=== PATIENT | female | born 1935 | race Caucasian/White ===

== ENCOUNTER 2018-03-30 12:12 | Outpatient (CLI) | payer MEDICARE | END 2018-03-30 12:13 | disposition home or self-care (01) | LOC: BICMRI 12:12 | PROVIDERS: ATTEND Orthopaedic Surgery | DX: M47.896 Other spondylosis, lumbar region (principal); M54.32 Sciatica, left side | CPT/HCPCS: 72148 ==

== ENCOUNTER 2018-07-25 09:18 | Outpatient (CLI) | payer MEDICARE | END 2018-07-25 09:19 | disposition home or self-care (01) | LOC: BICMAMMO 09:18 | PROVIDERS: ATTEND Obstetrics & Gynecology | DX: Z12.31 Encounter for screening mammogram for malignant neoplasm of breast (principal); M85.852 Other specified disorders of bone density and structure, left thigh | CPT/HCPCS: 77063; 77067; 77080 ==

== ENCOUNTER 2019-01-13 11:34 | Inpatient (IN) | payer MEDICARE ==
[2019-01-13 16:16] VITALS: BMI 25.1
[2019-01-13] MEDS ORDERED: Acetaminophen 325 MG TAB PO PRN (16:44)
[2019-01-13] MEDS ORDERED: Acetaminophen 650 MG Suppository PR PRN (16:44)
[2019-01-13] MEDS ORDERED: Bisacodyl 5 MG TAB PO PRN (16:44)
[2019-01-13] MEDS: Sodium Chloride 0.9% 1,000 ML IV SCH (17:29)
--- NOTE | 2019-01-13 17:54 | HP ---
PRIMARY CARE PROVIDER: Mitch Gu DO CHIEF COMPLAINT: Flank pain. HISTORY OF PRESENT ILLNESS: Ms. De La O is a pleasant 84-year-old lady, who was seen at [facility] on January 13, 2019, following transfer from [facility] [place]. She was admitted there on January 10, 2019, after she presented to the emergency room with acute onset of left flank pain. The patient reports that she continues to have on and off left flank pain, dull, 10/10 at its worst, improving with pain medications. She denies any dysuria. She denies any chest pain or shortness of breath. At [place], she was found to have urinary tract infection and bacteremia with pansensitive Escherichia coli. She underwent imaging in the form of CT scan of abdomen and pelvis, which showed 6 to 7 mm distal left ureteral calculus near the UVJ causing moderate hydronephrosis and hydroureter. She also had worsening renal function. She has been transferred to this facility for ongoing treatment as well as Urology consult. REVIEW OF SYSTEMS: All other systems reviewed and found to be negative. PAST MEDICAL HISTORY: Congestive heart failure, dyslipidemia, coronary artery disease. PAST SURGICAL HISTORY: Appendectomy, coronary artery bypass graft surgery, and bilateral tubal ligation. SOCIAL HISTORY: The patient drinks one beer a day. She denies any tobacco use or recreational drug use. FAMILY HISTORY: Coronary artery disease in both her parents. ALLERGIES: LATEX AND NATURAL RUBBER. HOME MEDICATIONS: In addition to antibiotics started at [facility], which need to be clarified, her home medications include: 1. Spironolactone 25 mg daily. 2. Simvastatin 40 mg at bedtime. 3. Metoprolol 25 mg daily. 4. Lasix 20 mg daily. 5. Aspirin 81 mg daily. PHYSICAL EXAMINATION: GENERAL: Ms. De La O is awake and alert, not in acute distress. VITAL SIGNS: Blood pressure is 126/72, pulse 69, respiratory rate 18, and oxygen saturation 97% on room air. She is afebrile. EYES: No scleral icterus. No conjunctival pallor. ENT: Moist mucosal membranes. No oropharyngeal erythema or exudates. NECK: Supple, nontender, trachea is midline. RESPIRATORY: Accessory muscles of breathing are not active. Chest wall movements are symmetric bilaterally. Lungs are clear to auscultation without wheeze, rhonchi, or crepitations. CARDIOVASCULAR: S1 and S2 are heard, regular. Peripheral pulses palpable. No carotid bruit. No pericardial rub. ABDOMEN: Soft, nontender. Bowel sounds heard. No hepatomegaly. No splenomegaly. NEUROLOGIC: Cranial nerves 2 through 12 intact. Deep tendon reflexes 2+. MUSCULOSKELETAL: Power is 5/5 in all four extremities. SKIN: No rashes or subcutaneous nodules. LYMPHATIC: No cervical lymphadenopathy. PSYCHIATRIC: Normal mood. Normal affect. The patient is oriented to person, place, and time. LABORATORY DATA: Ms. De La O's labs and investigations were reviewed. She had CT scan of the abdomen and pelvis at [facility], with results as described above. She also had abdominal x-ray today, where stone was not definitively seen due to overlying gas and fecal material. She also has mild constipation. Today, she has white count 9100, of which 76% are neutrophils, normocytic anemia with hemoglobin 11.9, thrombocytopenia with platelet count of 129,000, platelet count was 119,000 on January 12 and 168,000 on January 11. She has normal potassium, normal sodium, decreased carbon dioxide of 21, normal anion gap, elevated blood urea nitrogen of 27, elevated creatinine of 1.81, last creatinine was 1.78 on January 12, 2019, creatinine was 1.09 on June 26, 2018, creatinine has slowly increased from 1.11 on January 10 to 1.81 today. Urine cultures and blood cultures have grown pansensitive Escherichia coli. ASSESSMENT AND PLAN: Ms. De La O is a pleasant 84-year-old lady, who was seen at [facility] on January 13, 2019, following transfer from [place]. Her problem list includes: 1. Bacteremia: She is presenting with bacteremia secondary to pansensitive Escherichia coli urinary tract infection. She will be admitted to the hospital for further management including intravenous antibiotics in the form of ceftriaxone. 2. Urinary tract infection: She has urinary tract infection with pansensitive Escherichia coli. We will continue ceftriaxone. 3. Ureterolithiasis: Urology Service will be consulted for opinion and help with management of ureterolithiasis. 4. Coronary artery disease: Appears to be stable. 5. Acute kidney injury: Most likely secondary to ureterolithiasis. However, component of dehydration cannot be ruled out. We will provide gentle hydration and recheck creatinine. Many thanks for allowing me to participate in your patient's care. Please feel free to contact me with any questions or concerns. LEVEL OF RISK: Moderate. LEVEL OF COMPLEXITY: Moderate. Job ID: [id number]
[2019-01-13] MEDS: Simvastatin 40 MG TAB PO SCH (20:45)
[2019-01-13] MEDS: Heparin 5,000 UNITS/ML VIAL SC SCH (20:47)
[2019-01-13] MEDS ORDERED: HYDROcodone/Acetaminophen 5/325 mg Tablet PO PRN (23:39)
[2019-01-14] MEDS ORDERED: HYDROcodone/Acetaminophen 5/325 mg Tablet PO SCH (03:00)
[2019-01-14] MEDS ORDERED: Fentanyl 100 MCG/2 ML VIAL ONE (07:04)
[2019-01-14] MEDS ORDERED: Famotidine/PF 20 mg/2ml Vial ONE (07:04)
[2019-01-14 07:59] LABS: #Eosinphils 0.3 thou/uL (0.0-0.7); #Lymphocytes 1.2 thou/uL (1.20-3.40); #Monocytes 0.7 thou/uL (0.11-0.59); #Neutrophils 5.2 thou/uL (1.40-6.50); %Basophils 0.6 % (0.0-1.0); %Eosinophils 3.9 % (0.0-10.0); %Lymphocytes 16.2 % (21.0-51.0); %Monocytes 9.9 % (0.0-10.0); %Neutrophils 69.5 % (42.0-75.0); Hemoglobin 12.9 g/dL (12.0-16.0); Mean Corpuscular HGB CONC 33.4 g/dL (32.0-36.0); Mean Corpuscular Volume 98.6 fL (78.0-98.0); Mean Platelet Volume 8.2 fL (7.4-10.4); Platelet Count 178 thou/uL (130-400); RBC Distribution Width 11.2 % (11.5-14.5); Red Blood Cell (RBC) Count 3.91 mill/uL (4.20-5.40); White Blood Cell (WBC) Count 7.5 thou/uL (4.8-10.8)
[2019-01-14] MEDS ORDERED: Iothalamate Meglumine 60% 50 ML VIAL FS ONE (08:10)
--- NOTE | 2019-01-14 08:18 | CON ---
DATE OF CONSULTATION: 01/14/2019 REQUESTING PHYSICIAN: Leonard Salazar MD REASON FOR CONSULTATION: Left ureteral stone and sepsis secondary to urinary tract infection. PRIMARY CARE PHYSICIAN: Dr. Mitch Gu, in [place], [place]. HISTORY OF PRESENT ILLNESS: Ms. De La O is an 84-year-old female who presented as a transfer from [facility] in [place] yesterday. The patient was admitted there on January 10, 2019. She presented with acute onset of left-sided flank pain. The patient was found to have significant urinary tract infection. She was also hypotensive. She was started on fluids and broad-spectrum antibiotics. Urine culture and blood culture demonstrated pansensitive E coli in both. On January 12, 2019, she underwent a CT of the abdomen and pelvis, which demonstrated a 6- to 7-mm distal left ureteral calculus causing moderate hydroureteronephrosis. The patient also had worsening renal function. She clinically improved and was kept there overnight, and yesterday afternoon, a KUB was performed which demonstrated the stone at approximately the same location. At this point, she was transferred here to [facility] in [place] for a higher level of care for urologic services. Currently, the patient is doing well. She is no longer hypotensive. She has no flank pain at this time. She has not had a fever. No recurrent UTIs in the past. She has no history of prior stones. No other complaints. REVIEW OF SYSTEMS: Full 12-point review of systems was performed and is negative other than mentioned in the HPI. PAST MEDICAL HISTORY: Congestive heart failure, coronary artery disease status post CABG in 2005, dyslipidemia. PAST SURGICAL HISTORY: Appendectomy, CABG in 2006, bilateral tubal ligation. SOCIAL HISTORY: She drinks one beer per day. No tobacco. She lives at home. FAMILY HISTORY: Noncontributory. ALLERGIES: LATEX AND NATURAL RUBBER. HOME MEDICATIONS: Spironolactone, simvastatin, metoprolol, Lasix, and aspirin 81 mg. PHYSICAL EXAMINATION: VITAL SIGNS: Temperature 98.3, pulse 91, respirations 16, oxygen saturation 100% on room air, and blood pressure 140/84. GENERAL: She is alert and oriented x3, in no apparent distress. HEENT: Normocephalic, atraumatic. NECK: Supple. No masses or lymphadenopathy. CARDIOVASCULAR: Regular rate and rhythm. PULMONARY: Breathing unlabored. No wheezing. ABDOMEN: Soft, nontender/nondistended. No masses or organomegaly. No suprapubic tenderness to palpation. No CVA tenderness. EXTREMITIES: Warm and well perfused. No edema. NEUROLOGIC: No focal deficits. LABORATORY DATA: Urine culture and blood culture from January 10, 2019 demonstrate pansensitive E coli. The patient is currently on IV Rocephin. White blood cell count 9.1, hemoglobin 11.9, hematocrit 35, and platelets 129. Sodium 137, potassium 4.6, chloride 108, bicarb 21, BUN 27, and creatinine 1.81. ASSESSMENT: An 84-year-old female with left ureteral stone, left hydroureteronephrosis, Escherichia coli sepsis secondary to urinary tract infection. PLAN: I discussed ureteral stones in the setting of urinary tract infections and sepsis secondary to UTIs with the patient in detail. Surprisingly, she has done very well and improved clinically on IV antibiotics alone. KUB demonstrated the stone within the same location yesterday in the distal left ureter. I recommended decompression of the left renal collecting system by left ureteral stent placement. After indications/risks/benefits/alternatives/possible outcomes were discussed with the patient in detail, she elected to proceed with a left ureteral stent placement and all indicated procedures. I also explained to the patient that she will require staged definitive management of this stone as an outpatient once she has a complete two-week course of culture-specific antibiotics. This will be performed later today. Job ID: [id number]
[2019-01-14 08:20] LABS: Anion Gap 14 mmol/L (10-20); BUN (Urea Nitrogen) 21 mg/dL (9.8-20.1); Calc. Creatinine Clearance 23 mL/min (70-130); Calcium 9.1 mg/dL (7.8-10.44); Carbon Dioxide 22 mmol/L (23-31); Chloride 106 mmol/L (98-107); Estimated GFR-MDRD 27; Glucose 90 mg/dL (83-110); Potassium 4.1 mmol/L (3.5-5.1); Sodium 138 mmol/L (136-145)
[2019-01-14] MEDS ORDERED: Ondansetron HCl/PF 4 MG/2 ML Vial IVP PRN (08:38)
[2019-01-14] MEDS ORDERED: Promethazine HCl 25 MG/ML VIAL IM PRN (08:38)
[2019-01-14] MEDS ORDERED: Promethazine HCl 25 MG/ML VIAL SLOW IVP PRN (08:38)
[2019-01-14] MEDS: Heparin 5,000 UNITS/ML VIAL SC SCH ×3 (09:00→19:39)
[2019-01-14] MEDS: Aspirin 81 mg Enteric Coated Tablet PO SCH (09:00)
--- NOTE | 2019-01-14 09:46 | RAD ---
RETROGRADE IVP: COMPARISON: CT abdomen/pelvis 01/12/2019. HISTORY: Stent placement for left distal ureteral calcification. FINDINGS/IMPRESSION: A single limited intraoperative fluoroscopic view from a retrograde IVP was submitted for interpretat ion. A double-J ureteral stent is seen in good position in the left renal collecting system. No obv ious calcification is seen. No hydronephrosis is present. POS: BAY
[2019-01-14] MEDS: cefTRIAXone\\ROCEPHIN 1 GM in Sodium Chloride 0.9% 100 ML IVPB SCH (12:44)
--- NOTE | 2019-01-14 13:35 | PDOC.PN ---
- Subjective Encounter Start Date: 01/14/19 Encounter Start Time: 09:20 Pt seen for followup re: bacteremia. Says she feels well. No chest pain, shortness of breath, fevers or chills. - Objective Resuscitation Status - Order Detail: 01/13/19 16:44 Resuscitation Status Routine Resuscitation Status: FULL: Full Resuscitation MAR Reviewed: Yes Vital Signs & Weight: Vital Signs (12 hours) Temp Pulse Resp BP Pulse Ox 01/14/19 07:26 98.3 F 91 16 140/84 100 01/14/19 04:00 98 F 69 16 133/71 96 Weight Weight 142 lb I&O: 01/13/19 01/14/19 01/15/19 05:59 06:59 06:59 Intake Total 600 Output Total 900 Balance -300 Result Diagrams: 01/14/19 07:23 01/14/19 07:23 Additional Labs: Labs reviewed by me Phys Exam - Physical Examination Constitutional: NAD HEENT: moist MMs Neck: supple Respiratory: clear to auscultation bilateral Cardiovascular: RRR Gastrointestinal: soft Neurological: moves all 4 limbs Psychiatric: normal affect Dx/Plan (1) Bacteremia Code(s): R78.81 - BACTEREMIA Status: Acute Comment: pansensitive E. coli bacteremia, continue ceftriaxone, switch to oral antibiotics at time of discharge (2) UTI (urinary tract infection) Status: Acute Comment: E. coli UTI (3) Ureterolithiasis Code(s): N20.1 - CALCULUS OF URETER Status: Acute Comment: s/p cystoscopy with ureteral stent (4) AILYN (acute kidney injury) Code(s): N17.9 - ACUTE KIDNEY FAILURE, UNSPECIFIED Status: Acute Comment: s/ p ureteral stent, pt receiving gentle hydration, follow creatinine (5) Coronary artery disease Code(s): I25.10 - ATHSCL HEART DISEASE OF [place] CORONARY ARTERY W/O ANG PCTRS Status: Chronic - Plan * . Review of Systems - Review of Systems Cardiovascular: other. negative: chest pain, palpitations, orthopnea, paroxysmal nocturnal dyspnea, edema, light headedness Gastrointestinal: negative: Nausea, Vomiting, Abdominal Pain, Diarrhea, Constipation, Melena, Hematochezia - Medications/Allergies Allergies/Adverse Reactions: Allergies Allergy/AdvReac Type Severity Reaction Status Date / Time Latex, Natural Rubber Allergy Severe Verified 01/10/19 20:10 Medications: Current Medications Acetaminophen (Tylenol) 650 mg PO Q4H PRN PRN Reason: Headache/Fever/Mild Pain (1-3) Last Admin: 01/13/19 21:33 Dose: 650 mg Acetaminophen (Tylenol) 650 mg DE Q4H PRN PRN Reason: Headache/Fever/Mild Pain (1-3) Aspirin (Ecotrin) 81 mg PO DAILY [facility] Last Admin: 01/14/19 09:00 Dose: Not Given Bisacodyl (Dulcolax) 10 mg PO DAILYPRN PRN PRN Reason: Constipation Heparin Sodium (Porcine) (Heparin) 5,000 units SC TID [facility] Last Admin: 01/14/19 09:00 Dose: Not Given Ceftriaxone Sodium 1 gm/ (Sodium Chloride) 100 mls @ 200 mls/hr IVPB 1000 [facility] Last Admin: 01/14/19 12:44 Dose: 100 mls Sodium Chloride (Normal Saline 0.9%) 1,000 mls @ 50 mls/hr IV .Q20H [facility] Last Admin: 01/13/19 17:29 Dose: 1,000 mls Metoprolol Succinate (Toprol Xl) 25 mg PO DAILY [facility] Simvastatin (Zocor) 40 mg PO HS [facility] Last Admin: 01/13/19 20:45 Dose: 40 mg Sodium Chloride (Flush - Normal Saline) 10 ml IVF PRN PRN PRN Reason: Saline Flush
--- NOTE | 2019-01-14 13:42 | OP ---
DATE OF PROCEDURE: 01/14/2019 CASE PICKER: None. PREPROCEDURE DIAGNOSES: 1. Left ureteral calculus. 2. Left hydroureteronephrosis. 3. Sepsis secondary to urinary tract infection, Escherichia Coli. POSTPROCEDURE DIAGNOSES: 1. Left ureteral calculus. 2. Left hydroureteronephrosis. 3. Sepsis secondary to urinary tract infection, Escherichia Coli. PROCEDURES PERFORMED: 1. Left ureteral stent placement. 2. Left retrograde ureteropyelogram. ANESTHESIA: LMA anesthesia. COMPLICATIONS: None. FLUIDS: See anesthesia record. BLOOD LOSS: Minimal. SPECIMENS: None. POSTPROCEDURE STATUS: Satisfactory. INDICATIONS FOR PROCEDURE: Ms. De La O is an 84-year-old female, who was an inpatient at the [facility] in [place] for complicated urinary tract infection. The patient was admitted on January 10, 2019, and January 12, 2019. She had imaging demonstrating a left ureteral calculus, 7 mm in the distal left ureter. The patient clinically was improving. A KUB was performed the next day and demonstrated a stone in the same location. She was transferred to [facility] in [place] for higher level of care. After indications/risks/benefits/alternatives/possible outcomes were discussed with the patient in detail, she elected to proceed with left ureteral stent placement and all indicated procedures. DESCRIPTION OF PROCEDURE: The patient was taken to the operating room and after successful induction of LMA anesthesia, she was placed in the dorsal lithotomy position. Her genitalia were prepped and draped in the usual sterile fashion. A time-out was performed. Following which, a 22-Israeli rigid cystoscope with visual obturator was advanced into the patient's urethra and into her bladder. A complete cystoscopy was performed. There were no mucosal lesions of concern. Ureteral orifices were in the normal orthotopic location bilaterally and had clear efflux. The left ureteral orifice was identified. It was cannulated with a zip wire, which was advanced up to the level of the left renal pelvis. At this point, the cystoscope was removed and a 5-Israeli open-ended ureteral catheter was placed over the wire and although, the stone could not be seen all that well fluoroscopically, there was resistance met within the distal ureter and eventually, we were able to bypass the stone with the open-ended catheter and advanced it up to the proximal left ureter. The wire was removed. There was a hydronephrotic drip present of dark urine. 4 mL of 50:50 mix of saline and Conray was used to perform a left retrograde pyelogram. There was some tortuosity of the left proximal ureter and moderate left hydroureteronephrosis. The wire was replaced and curled within the left renal pelvis, and the open-ended catheter was removed. A 6-Israeli x 22 cm double-J ureteral stent was placed over the wire and on wire removal, a good curl was achieved proximally within the left renal pelvis and distally within the bladder. The patient's bladder was drained. She tolerated the procedure well, was awoken from anesthesia, and transferred to the PACU in satisfactory condition. Job ID: [id number]
[2019-01-14] MEDS ORDERED: PROPOFOL 200 MG/20 ML VIAL ONE (15:12)
[2019-01-14] MEDS ORDERED: Dexamethasone 20 MG/5 ML VIAL ONE (15:12)
[2019-01-14] MEDS ORDERED: Lidocaine 1% PF 5 ML VIAL ONE (15:12)
[2019-01-14] MEDS ORDERED: Ondansetron PF 4 MG/2 ML Vial ONE (15:12)
[2019-01-14] MEDS ORDERED: PHENYLEPHRINE-NS 100 MCG/ML 10 ML SYRINGE ONE (15:12)
[2019-01-14] MEDS: Sodium Chloride 0.9% 1,000 ML IV SCH (16:15)
[2019-01-14] MEDS: Simvastatin 40 MG TAB PO SCH (19:39)
[2019-01-15] MEDS: cefTRIAXone\\ROCEPHIN 1 GM in Sodium Chloride 0.9% 100 ML IVPB SCH (09:30)
[2019-01-15] MEDS: Sodium Chloride 0.9% 1,000 ML IV SCH (09:31)
[2019-01-15] MEDS: Heparin 5,000 UNITS/ML VIAL SC SCH ×2 (09:34→16:06)
[2019-01-15] MEDS: Aspirin 81 mg Enteric Coated Tablet PO SCH (09:37)
--- NOTE | 2019-01-15 10:17 | PDOC.PN ---
- Subjective Encounter Start Date: 01/15/19 Encounter Start Time: 13:35 Subjective: Patient feeling much better. No more back pain. No fever. Eating -: well. Some dysuria since stent placement. Ambulating well. Dressed -: and ready to go home. - Objective Resuscitation Status - Order Detail: 01/13/19 16:44 Resuscitation Status Routine Resuscitation Status: FULL: Full Resuscitation MAR Reviewed: Yes Vital Signs & Weight: Vital Signs (12 hours) Temp Pulse Resp BP Pulse Ox 01/15/19 08:46 97.4 F L 57 L 14 118/60 96 01/15/19 07:27 96 01/15/19 04:12 97.5 F L 56 L 16 149/82 H 97 01/15/19 00:12 98.1 F 67 18 114/58 L 98 Weight Weight 142 lb I&O: 01/14/19 01/15/19 01/16/19 06:59 06:59 06:59 Intake Total 3300 Output Total 2650 Balance 650 Result Diagrams: 01/14/19 07:23 01/14/19 07:23 Phys Exam - Physical Examination Constitutional: NAD HEENT: moist MMs Respiratory: no wheezing, no rales, no rhonchi Cardiovascular: RRR, no significant murmur Gastrointestinal: soft, non-tender, positive bowel sounds Neurological: non-focal, moves all 4 limbs Psychiatric: normal affect, A&O x 3 Dx/Plan (1) E. coli sepsis Code(s): A41.51 - SEPSIS DUE TO ESCHERICHIA COLI [E. COLI] Status: Resolved Comment: growing in urine and blood, pansensitive, no leukocytosis or fever in the hospital (2) Bacteremia Code(s): R78.81 - BACTEREMIA Status: Acute Comment: pansensitive E. coli bacteremia, continue ceftriaxone, switch to oral antibiotics at time of discharge (3) UTI (urinary tract infection) Status: Acute Comment: E. coli UTI, complicated by ureteral stone (4) Ureterolithiasis Code(s): N20.1 - CALCULUS OF URETER Status: Acute Comment: s/p cystoscopy with ureteral stent (5) AILYN (acute kidney injury) Code(s): N17.9 - ACUTE KIDNEY FAILURE, UNSPECIFIED Status: Acute Comment: s/ p ureteral stent, pt receiving gentle hydration (6) Coronary artery disease Code(s): I25.10 - ATHSCL HEART DISEASE OF [place] CORONARY ARTERY W/O ANG PCTRS Status: Chronic (7) Congestive heart failure Code(s): I50.9 - HEART FAILURE, UNSPECIFIED Status: Chronic Qualifiers: Heart failure type: unspecified Heart failure chronicity: chronic Qualified Code(s): I50.9 - Heart failure, unspecified Comment: stable, no exacerbation - Plan cont current plan of care, continue antibiotics, out of bed/ambulate, DVT proph w/SCDs Spoke with Dr. Couch and patient cleared to go home from -: uro standpoint. Needs 10 days of abx and his office will set up a f/u -: to remove stent. Patient without any further sepsis. Clinically stable for -: d/c on oral abx. F/u labs in PCP office to make sure kidney function back -: to normal. * . - Discharge Day Encounter end time: 13:55
[2019-01-15 12:42] VITALS: BP 113/67; TEMP 98.3
--- NOTE | 2019-01-16 05:44 | DIS ---
DATE OF ADMISSION: 01/13/2019 DATE OF DISCHARGE: 01/15/2019 PRIMARY CARE PHYSICIAN: Mitch Gu DO REASON FOR ADMISSION: Complicated urinary tract infection with bacteremia and kidney stone. DIAGNOSES AT DISCHARGE: 1. Sepsis, resolved. 2. Escherichia coli bacteremia, resolved. 3. Complicated urinary tract infection with Escherichia coli, pansensitive to antibiotics. 4. Ureterolithiasis, status post cystoscopy with ureteral stent placement. 5. Acute kidney injury. 6. Coronary artery disease. 7. Congestive heart failure, unspecified type, stable without exacerbation. PROCEDURES: 1. Retrograde pyelogram showing double-J ureteral stent in good position of the left renal collecting system without any obvious calcification. No hydronephrosis. 2. Left ureteral stent placement. CONSULTATIONS: Urology, David Couch MD SUMMARY OF HOSPITAL COURSE: This is an 84-year-old female, who was admitted to [facility] in [place] for left flank plain and urinary tract infection. She was started on antibiotics, found to have urinary tract infection with bacteremia, pansensitive E coli. She had a CT scan of the abdomen and pelvis, which showed a 6 to 7 mm distal left ureteral calculus causing moderate hydronephrosis and hydroureter, so she was transferred here. Dr. Couch was consulted. The patient had a stent placement with resolution of her hydronephrosis and no further visible stone. She was afebrile with a normal white blood cell count. Her creatinine was stable as well. The patient was ambulating well and eating well, and was cleared by Urology from their standpoint for discharge. DISCHARGE MANAGEMENT: Discharged home. FOLLOWUP: Follow up with Dr. Gu in 3 to 4 days for repeat basic metabolic panel, to check creatinine, and with Dr. Couch in sometime next week. His office will call to set up the appointment for the stent removal. ACTIVITY: As tolerated. DIET: Healthy heart low-sodium diet. MEDICATIONS: 1. Omnicef 300 mg twice a day, 20 capsules dispensed. 2. Continue aspirin 81 mg daily. 3. Metoprolol 25 mg extended release daily. 4. Simvastatin 40 mg at night. 5. Acetaminophen as needed. 6. Furosemide 20 mg p.o. daily. 7. Hydrocodone as needed. 8. Spironolactone 25 mg daily. 9. Tamsulosin 0.4 mg daily. Arranging the details of this discharge took 35 minutes. Job ID: [id number]
== END 2019-01-15 16:20 | disposition home or self-care (01) | DRG 854 ==
LOC: SURG A 14:51
PROVIDERS: ADMIT Internal Medicine; ATTEND Internal Medicine
PROC: 0T778DZ Dilation of Left Ureter with Intraluminal Device, Via Natural or Artificial Opening Endoscopic (ICD-10-PCS; principal; 2019-01-14)
PROC: BT1F0ZZ Fluoroscopy of Left Kidney, Ureter and Bladder using High Osmolar Contrast (ICD-10-PCS; 2019-01-14)
DX: A41.51 Sepsis due to Escherichia coli [E. coli] (principal); N17.9 Acute kidney failure, unspecified; N13.6 Pyonephrosis; N39.0 Urinary tract infection, site not specified; E78.5 Hyperlipidemia, unspecified; I50.9 Heart failure, unspecified; I25.10 Atherosclerotic heart disease of native coronary artery without angina pectoris; R65.20 Severe sepsis without septic shock; Z90.49 Acquired absence of other specified parts of digestive tract; Z95.1 Presence of aortocoronary bypass graft; Z98.51 Tubal ligation status; Z91.040 Latex allergy status; Z79.82 Long term (current) use of aspirin
CPT/HCPCS: 36415; 74420; 80048; 85025; C1758; C1769; J0131; J0696; J1100; J1644; J2001; J2405; J2704; J3010; J7050; Q9961; S0028

== ENCOUNTER 2019-07-26 12:18 | Outpatient (CLI) | payer MEDICARE ==
--- NOTE | 2019-07-26 13:13 | MMO ---
Bilateral MAMMO Bilat Screen [facility]. CLINICAL HISTORY: Patient is 84 years old and is seen for screening. The patient has no family history of breast cancer. The patient has no personal history of cancer. VIEWS: The views performed were: bilateral craniocaudal with tomosynthesis and bilateral mediolateral oblique with tomosynthesis. FILMS COMPARED: The present examination has been compared to prior imaging studies performed at [facility] on 06/30/2015, 07/07/2016, 07/12/2017 and 07/25/2018. This study has been interpreted with the assistance of computer-aided detection. MAMMOGRAM FINDINGS: There are scattered fibroglandular densities. There are stable benign appearing calcifications seen in both breasts. There are also vascular calcifications. There are no suspicious masses, suspicious calcifications, or new areas of architectural distortion. IMPRESSION: THERE IS NO MAMMOGRAPHIC EVIDENCE OF MALIGNANCY. A ROUTINE FOLLOW-UP MAMMOGRAM IN 1 YEAR IS RECOMMENDED. THE RESULTS OF THIS EXAM WERE SENT TO THE PATIENT. ACR BI-RADS Category 2 - Benign finding MAMMOGRAPHY NOTE: 1. A negative mammogram report should not delay a biopsy if a dominant of clinically suspicious mass is present. 2. Approximately 10% to 15% of breast cancers are not detected by mammography. 3. Adenosis and dense breasts may obscure an underlying neoplasm. Reported by: FRANCIS LAWRENCE MD Electonically Signed: [id number]
== END 2019-07-26 12:19 | disposition home or self-care (01) ==
LOC: BICMAMMO 12:18
PROVIDERS: ATTEND Obstetrics & Gynecology
DX: Z12.31 Encounter for screening mammogram for malignant neoplasm of breast (principal)
CPT/HCPCS: 77063; 77067

== ENCOUNTER 2020-10-23 13:07 | Outpatient (CLI) | payer MEDICARE ==
--- NOTE | 2020-10-23 14:04 | MMO ---
Bilateral MAMMO Bilat Screen [facility]. CLINICAL HISTORY: Patient is 85 years old and is seen for screening. The patient has no family history of breast cancer. The patient has no personal history of cancer. VIEWS: The views performed were: bilateral craniocaudal with tomosynthesis and bilateral mediolateral oblique with tomosynthesis. FILMS COMPARED: The present examination has been compared to prior imaging studies performed at [facility] on 07/07/2016, 07/12/2017, 07/25/2018 and 07/26/2019. This study has been interpreted with the assistance of computer-aided detection. MAMMOGRAM FINDINGS: There are scattered fibroglandular densities. There are stable benign appearing calcifications seen in both breasts. There are also vascular calcifications. There are no suspicious masses, suspicious calcifications, or new areas of architectural distortion. IMPRESSION: THERE IS NO MAMMOGRAPHIC EVIDENCE OF MALIGNANCY. A ROUTINE FOLLOW-UP MAMMOGRAM IN 1 YEAR IS RECOMMENDED. THE RESULTS OF THIS EXAM WERE SENT TO THE PATIENT. ACR BI-RADS Category 2 - Benign finding MAMMOGRAPHY NOTE: 1. A negative mammogram report should not delay a biopsy if a dominant of clinically suspicious mass is present. 2. Approximately 10% to 15% of breast cancers are not detected by mammography. 3. Adenosis and dense breasts may obscure an underlying neoplasm. Reported by: FRANCIS LAWRENCE MD Electonically Signed: [id number]
== END 2020-10-23 13:08 | disposition home or self-care (01) ==
LOC: BICMAMMO 13:07
PROVIDERS: ATTEND Family Medicine
DX: Z12.31 Encounter for screening mammogram for malignant neoplasm of breast (principal)
CPT/HCPCS: 77063; 77067

== ENCOUNTER 2022-08-19 08:59 | Outpatient (CLI) | payer MEDICARE | END 2022-08-19 09:00 | disposition home or self-care (01) | LOC: TBSIIMAG 08:59 | PROVIDERS: ATTEND Nurse Practitioner Family | DX: S32.030A Wedge compression fracture of third lumbar vertebra, initial encounter for closed fracture (principal); M43.16 Spondylolisthesis, lumbar region | CPT/HCPCS: 72148 ==

== ENCOUNTER 2022-12-02 10:22 | Emergency (ER) | payer MEDICARE ==
[2022-12-02] MEDS ORDERED: Ibuprofen 200 MG TAB ONE (13:19)
[2022-12-02] MEDS ORDERED: Acetaminophen 500 MG TAB ONE (13:19)
== END 2022-12-02 14:31 | disposition home or self-care (01) ==
LOC: ERS 10:22
DX: S22.049A Unspecified fracture of fourth thoracic vertebra, initial encounter for closed fracture (principal); S33.8XXA Sprain of other parts of lumbar spine and pelvis, initial encounter; E78.00 Pure hypercholesterolemia, unspecified; I50.9 Heart failure, unspecified; W18.39XA Other fall on same level, initial encounter; Y92.090 Kitchen in other non-institutional residence as the place of occurrence of the external cause
CPT/HCPCS: 71046; 72072; 72220